=== PATIENT | male | born 1985 | race Caucasian/White ===

== ENCOUNTER 2020-09-23 23:03 | Emergency (ER) | payer OTHER ==
--- NOTE | 2020-09-23 23:24 | ED ---
Male Urogenital HPI - General Chief complaint: Urogenital Stated complaint: Male Time Seen by Provider: 09/23/20 23:12 Source: patient, RN notes reviewed, old records reviewed Mode of arrival: ambulatory Limitations: no limitations - History of Present Illness Initial comments: This is a 34-year-old male DF for evaluation patient Dese for evaluation regarding scrotal pain, patient has masses on his scrotum. Patient has otherwise no complaints. Concern for scrotal cancer as he has a friend who had similar issues with scrotal masses. Aside from pain patient has no complaints denying dysuria MD Complaint: testicle pain, testicle swelling -: week(s) Location: right testicle, left testicle Radiation: none Severity: mild Severity scale (1-10): 2 Quality: aching Consistency: constant Improves with: none Worsens with: none Reports: mass - Related Data Allergies Allergy/AdvReac Type Severity Reaction Status Date / Time tramadol Allergy Hallucinati Verified 09/23/20 23:07 ons Review of Systems ROS Statement: Those systems with pertinent positive or pertinent negative responses have been documented in the HPI. ROS Other: All systems not noted in ROS Statement are negative. Past Medical History Past Medical History: No Reported History History of Any Multi-Drug Resistant Organisms: None Reported Past Surgical History: Cholecystectomy, Joint Replacement Additional Past Surgical History / Comment(s): rt shoulder Past Psychological History: No Psychological Hx Reported Smoking Status: Current every day smoker Past Alcohol Use History: Occasional Past Drug Use History: None Reported General Exam Limitations: no limitations General appearance: alert, in no apparent distress Head exam: Present: atraumatic, normocephalic, normal inspection Eye exam: Present: normal appearance, PERRL, EOMI. Absent: scleral icterus, conjunctival injection, periorbital swelling ENT exam: Present: normal exam, mucous membranes moist Neck exam: Present: normal inspection. Absent: tenderness, meningismus, lymphadenopathy Respiratory exam: Present: normal lung sounds bilaterally. Absent: respiratory distress, wheezes, rales, rhonchi, stridor Cardiovascular Exam: Present: regular rate, normal rhythm, normal heart sounds. Absent: systolic murmur, diastolic murmur, rubs, gallop, clicks GI/Abdominal exam: Present: soft, normal bowel sounds. Absent: distended, tenderness, guarding, rebound, rigid Extremities exam: Present: normal inspection, full ROM, normal capillary refill. Absent: tenderness, pedal edema, joint swelling, calf tenderness Back exam: Present: normal inspection Neurological exam: Present: alert, oriented X3, CN II-XII intact Psychiatric exam: Present: normal affect, normal mood Skin exam: Present: warm, dry, intact, normal color. Absent: rash Course Vital Signs 09/23/20 09/24/20 23:05 00:57 Temperature 98.3 F 97.9 F Pulse Rate 85 77 Respiratory 20 17 Rate Blood Pressure 150/84 121/84 O2 Sat by Pulse 98 95 Oximetry - Reevaluation(s) Reevaluation #1: Medical record is reviewed Patient reevaluated feeling fine, symptoms improved Patient informed of results and questions have been answered Patient feels good for discharge Medical Decision Making - Medical Decision Making 34 male DF for evaluation concern for scrotal mass. Patient does have cysts, not requiring treatment, patient can be discharged home - Lab Data Lab Results 09/23/20 Range/Units 23:35 Urine Color Yellow Urine Appearance Clear (Clear) Urine pH 5.0 (5.0-8.0) Ur Specific [place] 1.018 (1.001-1.035) Urine Protein Negative (Negative) Urine Glucose (UA) Negative (Negative) Urine Ketones Negative (Negative) Urine Blood Negative (Negative) Urine Nitrite Negative (Negative) Urine Bilirubin Negative (Negative) Urine Urobilinogen <2.0 (<2.0) mg/dL Ur Leukocyte Esterase Small H (Negative) Urine RBC <1 (0-5) /hpf Urine WBC 2 (0-5) /hpf Ur Squamous Epith Cells <1 (0-4) /hpf Hyaline Casts 1 (0-2) /lpf Urine Mucus Rare H (None) /hpf - Radiology Data Radiology results: report reviewed (Ultrasound does show scrotal cysts on spermatic cord), image reviewed Disposition Clinical Impression: Epididymal cyst Disposition: HOME SELF-CARE Condition: Good Instructions (If sedation given, give patient instructions): Scrotal Pain (ED) Is patient prescribed a controlled substance at d/c from ED?: No Referrals: None,Stated [Primary Care Provider] - 1-2 days
[2020-09-23 23:44] LABS: Appearance,Urine Clear (Clear); Bilirubin,Urine Negative (Negative); Blood,Urine Negative (Negative); Color,Urine Yellow; Glucose,Urine (UA) Negative (Negative); Hyaline Casts,Urine 1 /lpf (0-2); Ketones,Urine Negative (Negative); Leukocyte Esterase,Urine Small (Negative); Mucus,Urine Rare /hpf; Nitrite,Urine Negative (Negative); Protein,Urine Negative (Negative); RBC,Urine <1 /hpf (0-5); Specific Gravity,Urine 1.018 (1.001-1.035); Squamous Epithelial Cell,Urine <1 /hpf (0-4); Urobilinogen,Urine <2.0 mg/dL (<2.0); WBC,Urine 2 /hpf (0-5)
--- NOTE | 2020-09-24 00:30 | US ---
EXAM: US Scrotum CLINICAL HISTORY: ITS.REASON US Reason: pain TECHNIQUE: Real-time ultrasound of the scrotum with color Doppler and image documentation. COMPARISON: No relevant prior studies available. FINDINGS: Right testicle: The right testicle measures 5.70 2.7 x 3.6 cm, 28.8 mL. The echogenicity and blood flow are normal. No torsion. Left testicle: The left testicle measures 5.9 x 3.2 x 3.3 cm, 32.5 mL. The echogenicity and Doppler blood flow is normal. There is a small left hydrocele. No torsion. Epididymides: There is a 0.7 x 0.4 cm cyst in the right epididymis. The left epididymis is enlarged measuring 1.4 x 1.3 x 1.5 cm with several cysts within it. The right epididymal head measures 0.9 x 1.5 cm. Scrotum: There is a small right hydrocele. IMPRESSION: Mildly enlarged left epididymis containing several cysts within it. This appears to correspond to the palpable abnormality. No hyperemia is seen to suggest epididymitis/orchitis at this time. Small bilateral hydroceles. Normal appearing testicles. No mass or torsion.
[2020-09-24] MEDS ORDERED: HYDROmorphone 1 MG/ML 1 ML SYRINGE IM STA (00:39)
[2020-09-24] MEDS ORDERED: ACET/COD 300 MG/30 MG STARTER PACK 6 TAB BTL PO STA (00:39)
[2020-09-24 00:57] VITALS: BP 121/84; PULSE 77; RESP 17; TEMP 97.9
== END 2020-09-24 00:57 | disposition home or self-care (01) ==
LOC: EC 23:03
DX: N50.3 Cyst of epididymis (principal); Z88.6 Allergy status to analgesic agent; Z90.49 Acquired absence of other specified parts of digestive tract
CPT/HCPCS: 93975; 76870; 96372; 99285; J1170

== ENCOUNTER 2021-01-06 17:11 | Emergency (ER) | payer OTHER ==
--- NOTE | 2021-01-06 17:46 | XR ---
EXAMINATION TYPE: XR chest 2V DATE OF EXAM: 01/06/2021 CLINICAL HISTORY: Chest Pain. TECHNIQUE: Frontal and lateral view of the chest. COMPARISON: None FINDINGS: Low lung volumes accentuates the pulmonary markings. The cardiomediastinal silhouette is w ithin normal limits for size. Pulmonary vasculature is normal. There is no focal air space opacity. No pleural effusion. No pneumothorax seen. No acute displaced osseous fracture. IMPRESSION: No acute cardiopulmonary process.
[2021-01-06] MEDS ORDERED: KETOROLAC 15 MG/ML 1 ML VIAL IVP STA (18:22)
--- NOTE | 2021-01-06 18:32 | ED ---
General Adult HPI - General Chief complaint: Chest Pain Stated complaint: chest pain/sob Time Seen by Provider: 01/06/21 17:20 Source: patient, family, RN notes reviewed, old records reviewed Mode of arrival: ambulatory Limitations: no limitations - History of Present Illness Initial comments: This is a 35-year-old male who presents emergency Department complaining of some reproducible chest pain some reproducible lower back pain and some left upper t rapezius pain which is also reproducible. Patient states when he walks and moves and takes a deep breath it does hurt more makes him feel like he short of breath but is not having any difficulty catching his breath. Patient denies any fever chills or cough. Patient denies any exposure to cold. Patient denies any abdominal pain patient denies nausea vomiting diarrhea. Patient denies any swelling to the legs or calf tenderness. - Related Data Previous Rx's Medication Instructions Recorded Ketorolac [Toradol] 10 mg PO Q6HR #15 tab 01/06/21 Allergies Allergy/AdvReac Type Severity Reaction Status Date / Time tramadol Allergy Hallucinati Verified 01/06/21 18:20 ons Review of Systems ROS Statement: Those systems with pertinent positive or pertinent negative responses have been documented in the HPI. ROS Other: All systems not noted in ROS Statement are negative. Past Medical History Past Medical History: No Reported History History of Any Multi-Drug Resistant Organisms: None Reported Past Surgical History: Cholecystectomy, Joint Replacement Additional Past Surgical History / Comment(s): rt shoulder Past Psychological History: No Psychological Hx Reported Smoking Status: Current every day smoker Past Alcohol Use History: Occasional Past Drug Use History: None Reported General Exam - General Exam Comments Initial Comments: GENERAL: Patient is well-developed and well-nourished. Patient is nontoxic and well- hydrated and is in mild distress. ENT: Neck is soft and supple. No significant lymphadenopathy is noted. Oropharynx is clear. Moist mucous membranes. Neck has full range of motion without eliciting any pain. EYES: The sclera were anicteric and conjunctiva were pink and moist. Extraocular movements were intact and pupils were equal round and reactive to light. Eyelids were unremarkable. PULMONARY: Unlabored respirations. Good breath sounds bilaterally. No audible rales rhonchi or wheezing was noted. CARDIOVASCULAR: There is a regular rate and rhythm without any murmurs gallops or rubs. ABDOMEN: Soft and nontender with normal bowel sounds. SKIN: Skin is clear with no lesions or rashes and otherwise unremarkable. NEUROLOGIC: Patient is alert and oriented x3. Cranial nerves II through XII are grossly int act. Motor and sensory are also intact. Normal speech, volume and content. Symmetrical smile. MUSCULOSKELETAL: Normal extremities with adequate strength and full range of motion. LYMPHATICS: No significant lymphadenopathy is noted PSYCHIATRIC: Normal psychiatric evaluation. Limitations: no limitations Course Vital Signs 01/06/21 01/06/21 17:20 18:50 Temperature 98.2 F Pulse Rate 101 H 85 Respiratory 17 18 Rate Blood Pressure 131/80 130/94 O2 Sat by Pulse 99 97 Oximetry Medical Decision Making - Medical Decision Making EKG shows sinus tachycardia at 103 bpm MA interval 258 QRS is 92 QT interval 3:30 QTC is 432. Patient's EKG shows no ST segment elevation or depression. Patient's chest x-ray shows no acute abnormality. I went back and reevaluate the patient after received Toradol he was improved. Patient also stated that he has had similar chest pain multiple times in the past. - Lab Data Result diagrams: 01/06/21 18:33 01/06/21 18:33 Lab Results 01/06/21 01/06/21 01/06/21 Range/Units 18:33 18:33 18:33 WBC 9.9 (3.8-10.6) k/uL RBC 6.01 H (4.30-5.90) m/uL Hgb 17.1 (13.0-17.5) gm/dL Hct 50.3 (39.0-53.0) % MCV 83.6 (80.0-100.0) fL MCH 28.5 (25.0-35.0) pg MCHC 34.0 (31.0-37.0) g/dL RDW 14.4 (11.5-15.5) % Plt Count 179 (150-450) k/uL MPV 7.8 Neutrophils % 58 % Lymphocytes % 30 % Monocytes % 6 % Eosinophils % 3 % Basophils % 1 % Neutrophils # 5.7 (1.3-7.7) k/uL Lymphocytes # 3.0 (1.0-4.8) k/uL Monocytes # 0.6 (0-1.0) k/uL Eosinophils # 0.3 (0-0.7) k/uL Basophils # 0.1 (0-0.2) k/uL PT 9.7 (9.0-12.0) sec INR 0.9 (<1.2) APTT 26.8 (22.0-30.0) sec D-Dimer 0.24 (<0.60) mg/L FEU Sodium 139 (137-145) mmol/L Potassium 3.9 (3.5-5.1) mmol/L Chloride 105 (98-107) mmol/L Carbon Dioxide 25 (22-30) mmol/L Anion Gap 9 mmol/L BUN 12 (9-20) mg/dL Creatinine 0.76 (0.66-1.25) mg/dL Est GFR (CKD-EPI)AfAm >90 (>60 ml/min/1.73 sqM) Est GFR (CKD-EPI)NonAf >90 (>60 ml/min/1.73 sqM) Glucose 77 (74-99) mg/dL Calcium 9.5 (8.4-10.2) mg/dL Magnesium 1.9 (1.6-2.3) mg/dL Total Bilirubin 0.3 (0.2-1.3) mg/dL AST 31 (17-59) U/L ALT 57 H (4-49) U/L Alkaline Phosphatase 53 (38-126) U/L Troponin I (0.000-0.034) ng/mL Total Protein 7.2 (6.3-8.2) g/dL Albumin 4.3 (3.5-5.0) g/dL 01/06/21 Range/Units 18:33 WBC (3.8-10.6) k/uL RBC (4.30-5.90) m/uL Hgb (13.0-17.5) gm/dL Hct (39.0-53.0) % MCV (80.0-100.0) fL MCH (25.0-35.0) pg MCHC (31.0-37.0) g/dL RDW (11.5-15.5) % Plt Count (150-450) k/uL MPV Neutrophils % % Lymphocytes % % Monocytes % % Eosinophils % % Basophils % % Neutrophils # (1.3-7.7) k/uL Lymphocytes # (1.0-4.8) k/uL Monocytes # (0-1.0) k/uL Eosinophils # (0-0.7) k/uL Basophils # (0-0.2) k/uL PT (9.0-12.0) sec INR (<1.2) APTT (22.0-30.0) sec D-Dimer (<0.60) mg/L FEU Sodium (137-145) mmol/L Potassium (3.5-5.1) mmol/L Chloride (98-107) mmol/L Carbon Dioxide (22-30) mmol/L Anion Gap mmol/L BUN (9-20) mg/dL Creatinine (0.66-1.25) mg/dL Est GFR (CKD-EPI)AfAm (>60 ml/min/1.73 sqM) Est GFR (CKD-EPI)NonAf (>60 ml/min/1.73 sqM) Glucose (74-99) mg/dL Calcium (8.4-10.2) mg/dL Magnesium (1.6-2.3) mg/dL Total Bilirubin (0.2-1.3) mg/dL AST (17-59) U/L ALT (4-49) U/L Alkaline Phosphatase (38-126) U/L Troponin I <0.012 (0.000-0.034) ng/mL Total Protein (6.3-8.2) g/dL Albumin (3.5-5.0) g/dL Disposition Clinical Impression: Musculoskeletal pain Disposition: HOME SELF-CARE Condition: Good Instructions (If sedation given, give patient instructions): Chest Pain (ED) Prescriptions: Ketorolac [Toradol] 10 mg PO Q6HR #15 tab Is patient prescribed a controlled substance at d/c from ED?: No Referrals: None,Stated [Primary Care Provider] - 1-2 days Time of Disposition: 19:30
[2021-01-06 18:40] LABS: Basophils # (A) 0.1 k/uL (0-0.2); Basophils % (A) 1 %; Eosinophils # (A) 0.3 k/uL (0-0.7); Eosinophils % (A) 3 %; HCT 50.3 % (39.0-53.0); HGB 17.1 gm/dL (13.0-17.5); Lymphocytes % (A) 30 %; MCH 28.5 pg (25.0-35.0); MCV 83.6 fL (80.0-100.0); Mean Platelet Volume 7.8; Monocytes # (A) 0.6 k/uL (0-1.0); Monocytes % (A) 6 %; Neutrophils # (A) 5.7 k/uL (1.3-7.7); Neutrophils % (A) 58 %; Platelet Count 179 k/uL (150-450); RBC 6.01 m/uL (4.30-5.90); RDW 14.4 % (11.5-15.5); WBC 9.9 k/uL (3.8-10.6)
[2021-01-06 18:48] LABS: ALT 57 U/L (4-49); AST 31 U/L (17-59); African American GFR (CKD) >90 (>60 ml/min/1.73 sqM); Albumin 4.3 g/dL (3.5-5.0); Alkaline Phosphatase 53 U/L (38-126); Anion Gap 9 mmol/L; Blood Urea Nitrogen 12 mg/dL (9-20); Calcium 9.5 mg/dL (8.4-10.2); Carbon Dioxide 25 mmol/L (22-30); Chloride 105 mmol/L (98-107); Glucose 77 mg/dL (74-99); Magnesium 1.9 mg/dL (1.6-2.3); Non-African American GFR(CKD) >90 (>60 ml/min/1.73 sqM); Potassium 3.9 mmol/L (3.5-5.1); Sodium 139 mmol/L (137-145); Total Bilirubin 0.3 mg/dL (0.2-1.3); Total Protein 7.2 g/dL (6.3-8.2)
[2021-01-06 18:52] VITALS: BP 130/94; RESP 18
[2021-01-06 19:00] LABS: D-Dimer 0.24 mg/L FEU (<0.60); INR 0.9 (<1.2); Partial Thromboplastin Time 26.8 sec (22.0-30.0); Prothrombin Time 9.7 sec (9.0-12.0)
[2021-01-06 20:34] VITALS: PULSE 76; TEMP 97.5
== END 2021-01-06 20:30 | disposition home or self-care (01) ==
LOC: EC 17:11
DX: M79.18 Myalgia, other site (principal); R07.9 Chest pain, unspecified; R06.02 Shortness of breath; M54.5 Low back pain; F17.200 Nicotine dependence, unspecified, uncomplicated
CPT/HCPCS: 36415; 93005; 85379; 80053; 83735; 84484; 85025; 85610; 85730; 71046; 99285; 96374; J1885

== ENCOUNTER 2021-03-15 22:51 | Emergency (ER) | payer OTHER ==
[2021-03-15 23:04] VITALS: BP 126/84; PULSE 91; RESP 16; TEMP 98
--- NOTE | 2021-03-15 23:39 | ED ---
Lower Extremity Injury HPI - General Chief Complaint: Extremity Injury, Lower Stated Complaint: [facility] LT foot injury Time Seen by Provider: 03/15/21 23:18 Source: patient, RN notes reviewed Mode of arrival: ambulatory Limitations: no limitations - History of Present Illness Initial Comments: This a 35-year-old male presents emergency Department with chief complaint of left foot injury. Patient states that he was at work states she dropped approximately 30 pound metal piece onto his left foot. Patient states his left foot pain no laceration noted. He states he is able to family but states there is moderate discomfort no paresthesias. - Related Data Previous Rx's Medication Instructions Recorded Ketorolac [Toradol] 10 mg PO Q6HR #15 tab 01/06/21 Ibuprofen [Motrin] 600 mg PO Q8HR PRN #20 tab 03/16/21 Allergies Allergy/AdvReac Type Severity Reaction Status Date / Time tramadol Allergy Hallucinati Verified 03/15/21 23:02 ons Review of Systems ROS Statement: Those systems with pertinent positive or pertinent negative responses have been documented in the HPI. ROS Other: All systems not noted in ROS Statement are negative. Past Medical History Past Medical History: No Reported History History of Any Multi-Drug Resistant Organisms: None Reported Past Surgical History: Cholecystectomy, Joint Replacement Additional Past Surgical History / Comment(s): rt shoulder Past Psychological History: No Psychological Hx Reported Smoking Status: Current every day smoker Past Alcohol Use History: Occasional Past Drug Use History: None Reported General Exam Limitations: no limitations General appearance: alert, in no apparent distress Respiratory exam: Present: normal lung sounds bilaterally. Absent: respiratory distress, wheezes, rales, rhonchi, stridor Cardiovascular Exam: Present: regular rate, normal rhythm, normal heart sounds. Absent: systolic murmur, diastolic murmur, rubs, gallop, clicks Extremities exam: Present: other (Left foot with moderate tenderness across the dorsal aspect, no swelling or ecchymosis noted no vascular intact Refill less than 2 seconds no ankle tenderness) Skin exam: Present: warm, dry, intact, normal color. Absent: rash Course Vital Signs 03/15/21 23:02 Temperature 98 F Pulse Rate 91 Respiratory 16 Rate Blood Pressure 126/84 O2 Sat by Pulse 96 Oximetry Medical Decision Making - Medical Decision Making X-rays were reviewed patient has no acute fracture. Patient has a left foot contusion. Patient discharged in stable condition. Disposition Clinical Impression: Contusion of foot, left Disposition: HOME SELF-CARE Condition: Stable Instructions (If sedation given, give patient instructions): Foot Contusion (ED) Additional Instructions: Please return to the Emergency Department if symptoms worsen or any other concerns. Prescriptions: Ibuprofen [Motrin] 600 mg PO Q8HR PRN #20 tab PRN Reason: Pain Is patient prescribed a controlled substance at d/c from ED?: No Referrals: None,Stated [Primary Care Provider] - 1-2 days Time of Disposition: 00:01
--- NOTE | 2021-03-15 23:53 | XR ---
EXAMINATION TYPE: XR foot complete LT DATE OF EXAM: 03/15/2021 COMPARISON: NONE HISTORY: Pain TECHNIQUE: 3 views FINDINGS: Metatarsals are intact. I see no fracture nor dislocation. Joint spaces are normal. IMPRESSION: Negative left foot exam. No fracture.
== END 2021-03-16 00:14 | disposition home or self-care (01) ==
LOC: EC 22:51
DX: S90.32XA Contusion of left foot, initial encounter (principal); F17.200 Nicotine dependence, unspecified, uncomplicated; Z88.6 Allergy status to analgesic agent; W20.8XXA Other cause of strike by thrown, projected or falling object, initial encounter; Y93.89 Activity, other specified; Y99.0 Civilian activity done for income or pay
CPT/HCPCS: 99283

== ENCOUNTER 2021-07-10 18:47 | Emergency (ER) | payer OTHER ==
[2021-07-10 19:09] VITALS: RESP 18
--- NOTE | 2021-07-10 19:51 | XR ---
EXAMINATION TYPE: XR shoulder complete RT DATE OF EXAM: 07/10/2021 CLINICAL HISTORY: Pain after fall TECHNIQUE: Three views of the right shoulder are obtained. COMPARISON: None. FINDINGS: There is no acute fracture/dislocation evident in the right shoulder. Degenerative changes of the acromioclavicular joint. Coracoclavicular distance is within normal limits. Glenohumeral join t appears normal. The visualized ribs are intact and unremarkable. IMPRESSION: There is no acute fracture or dislocation in the right shoulder.
--- NOTE | 2021-07-10 19:52 | XR ---
EXAMINATION TYPE: XR wrist complete RT DATE OF EXAM: 07/10/2021 CLINICAL HISTORY: Pain after fall TECHNIQUE: Frontal, lateral and oblique images of the right wrist are obtained. COMPARISON: None FINDINGS: There is no acute fracture/dislocation evident in the right wrist. The joint spaces in th e right wrist appear within normal limits. The overlying soft tissue appears unremarkable. IMPRESSION: There is no acute fracture or dislocation in the right wrist.
--- NOTE | 2021-07-10 19:53 | XR ---
EXAMINATION TYPE: XR Hip Complete RT DATE OF EXAM: 07/10/2021 CLINICAL HISTORY: Pain after fall TECHNIQUE: AP and frogleg views of the right hip are obtained. COMPARISON: None. FINDINGS: There is no acute fracture/dislocation evident in the right hip. Mild degenerative changes with joint space narrowing and osteophytosis along the inferior margin. The overlying soft tissue a ppears unremarkable. IMPRESSION: There is no acute fracture or dislocation in the right hip.
[2021-07-10] MEDS ORDERED: IBUPROFEN 600 MG TAB PO STA (19:55)
--- NOTE | 2021-07-10 20:02 | ED ---
General Adult HPI - General Chief complaint: Extremity Injury, Upper Stated complaint: Fall/Right side pain [facility] Time Seen by Provider: 07/10/21 19:35 Source: patient Mode of arrival: ambulatory Limitations: no limitations - History of Present Illness Initial comments: 35-year-old male presents to the emergency department for evaluation status post slip and fall at work approximately 2 hours ago. Patient states he landed on his right hip then reached behind him with his right arm extended and has right shoulder pain as well. States he is able to ambulate without difficulty. Does complain of pain extending down the right arm to the right hand, and also complains of numbness and tingling in the fingers of the affected extremity. Patient denies any injury to the head, neck, back, or chest wall. - Related Data Previous Rx's Medication Instructions Recorded Ketorolac [Toradol] 10 mg PO Q6HR #15 tab 01/06/21 Ibuprofen [Motrin] 600 mg PO Q8HR PRN #20 tab 03/16/21 Ibuprofen [Motrin] 600 mg PO Q8HR PRN #20 tab 07/10/21 Allergies Allergy/AdvReac Type Severity Reaction Status Date / Time tramadol Allergy Hallucinati Verified 07/10/21 19:08 ons Review of Systems ROS Statement: Those systems with pertinent positive or pertinent negative responses have been documented in the HPI. ROS Other: All systems not noted in ROS Statement are negative. Past Medical History Past Medical History: No Reported History History of Any Multi-Drug Resistant Organisms: None Reported Past Surgical History: Cholecystectomy, Joint Replacement Additional Past Surgical History / Comment(s): rt shoulder Past Psychological History: No Psychological Hx Reported Smoking Status: Current every day smoker Past Alcohol Use History: Occasional Past Drug Use History: None Reported General Exam Limitations: no limitations General appearance: alert, in no apparent distress Head exam: Present: atraumatic, normocephalic, normal inspection Eye exam: Present: normal appearance, PERRL, EOMI. Absent: scleral icterus, conjunctival injection, periorbital swelling Respiratory exam: Present: normal lung sounds bilaterally. Absent: respiratory distress, wheezes, rales, rhonchi, stridor, chest wall tenderness Cardiovascular Exam: Present: regular rate, normal rhythm, normal heart sounds. Absent: systolic murmur, diastolic murmur, rubs, gallop, clicks GI/Abdominal exam: Present: soft, normal bowel sounds. Absent: distended, tenderness, guarding, rebound, rigid Right General: Present: normal inspection Shoulder Exam: Present: tenderness (Right scapular tenderness upon palpation). Absent: full ROM (Range of motion limited by pain), ecchymosis, deformity, crepitus, dislocation, tenderness over AC joint Upper Arm exam: Present: normal inspection, tenderness (Tenderness upon palpation of the posterior aspect of the right upper arm). Absent: full ROM (Range of motion limited by pain), deformity, dislocation Elbow exam: Present: normal inspection. Absent: full ROM (Range of motion limited by pain), tenderness, swelling Forearm Wrist exam: Present: normal inspection. Absent: full ROM (Range of motion limited by pain), tenderness, swelling, deformity Hand Wrist exam: Present: normal inspection, full ROM. Absent: tenderness Neuro motor exam: Present: thumb opposition intact, fingers 2-5 abduction intact Vascular: Present: normal capillary refill, radial pulse, brachial pulse, ulnar pulse. Absent: vascular compromise, Pallo Right Hip exam: Present: normal inspection, full ROM, tenderness (Tenderness upon palpation of the right medial aspect of the hip). Absent: swelling, deformity, external rotation, internal rotation Upper Leg exam: Present: normal inspection, full ROM. Absent: tenderness, swelling Knee exam: Present: normal inspection, full ROM. Absent: tenderness, swelling Neurovascular tendon exam: Present: no vascular compromise Gait: observed and normal. negative: unable to bear weight Back exam: Present: normal inspection Neurological exam: Present: alert, oriented X3, CN II-XII intact Psychiatric exam: Present: normal affect, normal mood Skin exam: Present: warm, dry, intact, normal color. Absent: rash Course Vital Signs 07/10/21 07/10/21 19:05 21:11 Temperature 97.4 F L 98 F Pulse Rate 87 78 Respiratory 18 18 Rate Blood Pressure 113/75 134/84 O2 Sat by Pulse 96 98 Oximetry Medical Decision Making - Medical Decision Making [id number] male is evaluated for right shoulder and right hip pain status post slip and fall at work. Upon exam, patient reports tenderness upon palpation on the entire right shoulder accompanied by decreased range of motion. Patient reports falling on an outstretched arm therefore wrist was evaluated and was found to be nontender. Also complains of tenderness to the right hip upon palpation, though no decreased range of motion. X-rays of the right shoulder, right wrist, and right hip were obtained with no acute findings. Patient was given Motrin for discomfort while present in the department and reports improvement in symptoms. Declines need for prescription for pain control. Patient will be instructed to follow-up as his workplace requires for further evaluation and treatment. Return parameters were discussed in detail. Patient verbalizes understanding and agrees with this plan. This patient's case was discussed with my attending Dr. Pimentel. - Radiology Data Radiology results: report reviewed, image reviewed X-ray of the right hip was obtained. Report was reviewed in its entirety. Impression per Dr. Davis as there is no acute fracture or dislocation in the right hip. X-ray of the right wrist was obtained. Report was reviewed in its entirety. Impression per Dr. Davis as there is no acute fracture or dislocation in the right wrist. X-ray of the right shoulder was obtained. Report was reviewed in its entirety. Impression per Dr. Davis as there is no acute fracture or dislocation in the right shoulder. Disposition Clinical Impression: Hip pain, right, Shoulder pain, right Disposition: HOME SELF-CARE Condition: Stable Instructions (If sedation given, give patient instructions): Shoulder Pain (ED), Hip Pain (ED) Additional Instructions: Rest. Apply ice to affected areas. Take Tylenol or Motrin for discomfort. Gentle range of motion exercises; maintain regular mobility. Follow-up for a recheck in the next 1-2 days. Return to the emergency department with any new, worsening, or concerning symptoms. Prescriptions: Ibuprofen [Motrin] 600 mg PO Q8HR PRN #20 tab PRN Reason: Pain Is patient prescribed a controlled substance at d/c from ED?: No Referrals: None,Stated [Primary Care Provider] - 1-2 days Time of Disposition: 21:07
[2021-07-10 21:12] VITALS: BP 134/84; PULSE 78; TEMP 98
== END 2021-07-10 21:20 | disposition home or self-care (01) ==
LOC: EC 18:47
DX: M25.511 Pain in right shoulder (principal); M25.551 Pain in right hip; R20.0 Anesthesia of skin; R20.2 Paresthesia of skin; F17.200 Nicotine dependence, unspecified, uncomplicated; Z88.5 Allergy status to narcotic agent; W01.0XXA Fall on same level from slipping, tripping and stumbling without subsequent striking against object, initial encounter; Y99.0 Civilian activity done for income or pay
CPT/HCPCS: 73502; 99283

== ENCOUNTER → 2021-07-12 | Outpatient (CLI) | payer OTHER ==
--- NOTE | 2021-07-12 16:04 | XR ---
AP pelvis HISTORY: Trauma and pain, S40.011A S30.0XXA S60.211A M79.631 Single frontal view of the pelvis correlated to right hip dated 07/10/2021 Concentric joint space narrowing is suspected in or on the left than on the right, there is mild sylvia inal spurring as on prior. Alignment, bone mineralization are maintained. Phlebolith present in the l eft hemipelvis. IMPRESSION: Osteoarthritic changes are suspected, consider acetabular femoral impingement. No acute f racture or dislocation evident. MRI may be of increased sensitivity as indicated.
--- NOTE | 2021-07-12 16:06 | XR ---
Lumbar spine HISTORY: S40.011A S30.0XXA S60.211A M79.631 3 views of the lumbar spine Lumbar vertebral bodies show preserved height, alignment, and bone mineralization. Spina bifida occul ta is present at L5. There is an anterolisthesis grade 1 L5-S1, bilateral spondylolysis is present at L5. Loss of disc height present L4-5 and L5-S1, there is associated spondylosis. IMPRESSION: Spondylolysis, spondylolisthesis, degenerative disc disease and facet arthropathy.
--- NOTE | 2021-07-12 16:07 | XR ---
Right scapula HISTORY: S40.011A S30.0XXA S60.211A M79.851 2 views of the right scapula Scapula is intact. Bone mineralization, joint spaces and alignment are maintained. Question some calc ification along the rotator cuff insertion level. Right lung apex as visualized is normal. IMPRESSION: No fracture or dislocation of the right scapula.
--- NOTE | 2021-07-12 16:08 | XR ---
Right forearm HISTORY: S40.011A S30.0XXA S60.211A M79.631 2 views of the right forearm Bone mineralization, joint spaces and alignment are maintained. The soft tissue swelling. IMPRESSION: No fracture or dislocation.
== END | disposition home or self-care (01) ==
LOC: RADXRMAIN 15:02
PROVIDERS: ATTEND Emergency Medicine
DX: M51.36 Other intervertebral disc degeneration, lumbar region (principal); M47.896 Other spondylosis, lumbar region; S40.011A Contusion of right shoulder, initial encounter; S60.211A Contusion of right wrist, initial encounter; S30.0XXA Contusion of lower back and pelvis, initial encounter; M79.631 Pain in right forearm; W19.XXXA Unspecified fall, initial encounter
CPT/HCPCS: 72100; 72170

== ENCOUNTER 2021-07-18 19:59 | Emergency (ER) | payer OTHER ==
[2021-07-18 20:04] VITALS: BP 138/88; PULSE 97; RESP 18; TEMP 97.5
[2021-07-18] MEDS ORDERED: KETOROLAC 15 MG/ML 1 ML VIAL IM STA (20:21)
[2021-07-18] MEDS ORDERED: ACET/COD 300 MG/30 MG STARTER PACK 6 TAB BTL PO STA (20:22)
--- NOTE | 2021-07-18 20:27 | ED ---
General Adult HPI - General Chief complaint: Back Pain/Injury Stated complaint: PAIN L R BACK AND SHOULDER Time Seen by Provider: 07/18/21 20:11 Source: patient, RN notes reviewed, old records reviewed Mode of arrival: ambulatory Limitations: no limitations - History of Present Illness Initial comments: Patient is a pleasant 35-year-old male presenting to the emergency Department with complaints of right shoulder discomfort. Onset of symptoms was a week ago. Patient did have a fall at that time at work. Patient did land on his right shoulder. Patient still has some discomfort. Patient has some mild tingling of his right hand. No weakness. Patient did have x-rays done. Symptoms have been occurring for a week without significant improvement. 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 Patient states he is doing a lot of activity at work and they are not respecting his work restrictions. patient does have MRI scheduled. - Related Data Previous Rx's Medication Instructions Recorded Ketorolac [Toradol] 10 mg PO Q6HR #15 tab 01/06/21 Ibuprofen [Motrin] 600 mg PO Q8HR PRN #20 tab 03/16/21 Ibuprofen [Motrin] 600 mg PO Q8HR PRN #20 tab 07/10/21 Allergies Allergy/AdvReac Type Severity Reaction Status Date / Time tramadol Allergy Hallucinati Verified 07/18/21 20:04 ons Review of Systems ROS Statement: Those systems with pertinent positive or pertinent negative responses have been documented in the HPI. ROS Other: All systems not noted in ROS Statement are negative. Constitutional: Denies: fever Eyes: Denies: eye pain ENT: Denies: ear pain Respiratory: Denies: cough Cardiovascular: Denies: chest pain Endocrine: Denies: fatigue Gastrointestinal: Denies: abdominal pain Genitourinary: Denies: dysuria Musculoskeletal: Reports: as per HPI Skin: Denies: rash Neurological: Denies: weakness Past Medical History Past Medical History: No Reported History History of Any Multi-Drug Resistant Organisms: None Reported Past Surgical History: Cholecystectomy, Joint Replacement Additional Past Surgical History / Comment(s): rt shoulder Past Psychological History: No Psychological Hx Reported Smoking Status: Current every day smoker Past Alcohol Use History: Occasional Past Drug Use History: None Reported General Exam Limitations: no limitations General appearance: alert, in no apparent distress Head exam: Present: normocephalic Eye exam: Present: normal appearance Neck exam: Present: normal inspection Respiratory exam: Present: normal lung sounds bilaterally Cardiovascular Exam: Present: regular rate, normal rhythm Expanded Peripheral pulses: 2+: Radial (R) GI/Abdominal exam: Present: soft. Absent: tenderness Extremities exam: Present: normal inspection, other (Difficulty with flexion at the right shoulder secondary to discomfort.). Absent: tenderness Back exam: Present: other (Tenderness right upper scapular/trapezius region with muscle fullness) Neurological exam: Present: alert. Absent: motor sensory deficit Expanded Sensory exam: Upper Extremity Light Touch: Normal Motor strength exam: RUE: 5 Psychiatric exam: Present: normal affect, normal mood Skin exam: Present: normal color Course Vital Signs 07/18/21 20:00 Temperature 97.5 F L Pulse Rate 97 Respiratory 18 Rate Blood Pressure 138/88 O2 Sat by Pulse 98 Oximetry Medical Decision Making - Medical Decision Making Discussion had with patient regarding treatment. Patient would like tomorrow for. Patient is receptive to Toradol injection as well as Tylenol with codeine starter pack Disposition Clinical Impression: Shoulder pain, right Disposition: HOME SELF-CARE Condition: Stable Instructions (If sedation given, give patient instructions): Acute Low Back Pain (ED), Shoulder Pain (ED) Additional Instructions: Please [facility] Monday as planned. Return for increased pain or weakness, worsening or changing symptoms or other concerns. Is patient prescribed a controlled substance at d/c from ED?: No Referrals: Jeremy Gillette DO [STAFF PHYSICIAN] - 1-2 days Time of Disposition: 20:27
== END 2021-07-18 20:34 | disposition home or self-care (01) ==
LOC: EC 19:59
DX: M25.511 Pain in right shoulder (principal); R20.2 Paresthesia of skin; F17.200 Nicotine dependence, unspecified, uncomplicated; Z88.5 Allergy status to narcotic agent; Z88.8 Allergy status to other drugs, medicaments and biological substances; Z90.49 Acquired absence of other specified parts of digestive tract
CPT/HCPCS: 99283; 96372; J1885

== ENCOUNTER → 2021-07-19 | Outpatient (CLI) | payer OTHER ==
--- NOTE | 2021-07-19 13:53 | CT ---
EXAMINATION TYPE: CT lumbar spine wo con DATE OF EXAM: 07/19/2021 COMPARISON: None HISTORY: 35-year-old male slipped and fall, low back pain. S30.0XXD slip and fall worsening low back pain TECHNIQUE: Contiguous axial scanning of the lumbar spine without IV contrast. Coronal and sagittal re constructions performed. CT DLP: 959 mGycm Automated exposure control for dose reduction was used. FINDINGS: Vertebral body heights are preserved. There is grade 1 anterolisthesis at L5-S1 with associated moderate degenerative disc disease characte rized by disc space narrowing and disc bulge. The anterolisthesis secondary to bilateral L5 pars interarticularis defects. Mild posterior disc bulge at L4-L5. No large focal disc herniation or significant spinal canal stenosis. Mild facet arthropathy lower lumbar spine. Changes result in bilateral moderate foraminal stenosis at L5-S1 and mild at L4-L5. Incidental retroaortic left renal vein. IMPRESSION: 1. BILATERAL L5 PARS DEFECTS WITH GRADE 1 ANTEROLISTHESIS AT L5-S1 AND ASSOCIATED MODERATE DEGENERATI VE DISC DISEASE HERE. 2. MILD POSTERIOR DISC BULGE AT L4-L5. NO SIGNIFICANT SPINAL CANAL STENOSIS. 3. CHANGES RESULT IN MODERATE BILATERAL NEUROFORAMINAL STENOSIS AT L5-S1 AND MILD AT L4-L5.
== END | disposition home or self-care (01) ==
LOC: RADCTMAIN 12:57
PROVIDERS: ATTEND Emergency Medicine
DX: M48.061 Spinal stenosis, lumbar region without neurogenic claudication (principal); M43.16 Spondylolisthesis, lumbar region; M43.17 Spondylolisthesis, lumbosacral region; M51.37 Other intervertebral disc degeneration, lumbosacral region; M51.36 Other intervertebral disc degeneration, lumbar region; M51.26 Other intervertebral disc displacement, lumbar region
CPT/HCPCS: 72131

== ENCOUNTER → 2021-07-27 | Outpatient (CLI) | payer OTHER ==
--- NOTE | 2021-07-28 05:24 | MR ---
EXAMINATION TYPE: MR shoulder RT wo con DATE OF EXAM: 07/27/2021 COMPARISON: None HISTORY: Right shoulder pain and limited movement due to work related injury 07-10-21. History of sacha ulder surgery 7 years Multiplanar multiecho imaging of the right shoulder without contrast. The subscapularis tendon is intact. Biceps tendon is intact. Glenoid guadalupe appear intact. The suprasp inatus tendon appears intact. There is no retraction. AC joint is intact. There is no evidence of any significant subacromial impingement. I see no bony destructive process. Glenohumeral joint is anatomic. IMPRESSION: Negative MR scan of the right shoulder. No evidence of rotator cuff tear.
== END | disposition home or self-care (01) ==
LOC: RADMRIMAIN 16:33
PROVIDERS: ATTEND Emergency Medicine
DX: M79.631 Pain in right forearm (principal); R20.9 Unspecified disturbances of skin sensation

== ENCOUNTER → 2021-08-10 | Outpatient (CLI) | payer OTHER ==
--- NOTE | 2021-08-10 11:21 | XR ---
Cervical spine HISTORY: M [age], slip and fall 5 views of cervical spine There is foraminal encroachment on the right at C5-6. Cervical vertebral bodies show preserved height , alignment, bone mineralization. Prevertebral soft tissues and disc spaces are relatively maintained , some loss of disc height at 4 5 with some associated spondylosis. Facet arthropathy changes are pre sent. IMPRESSION: Degenerative disc disease and facet arthropathy.
== END | disposition home or self-care (01) ==
LOC: RADXRMAIN 09:15
PROVIDERS: ATTEND Emergency Medicine
DX: M50.30 Other cervical disc degeneration, unspecified cervical region (principal); M12.88 Other specific arthropathies, not elsewhere classified, other specified site
CPT/HCPCS: 72050

== ENCOUNTER → 2021-09-04 | Outpatient (CLI) | payer OTHER ==
--- NOTE | 2021-09-04 08:50 | MR ---
EXAMINATION TYPE: MR lumbar spine wo con DATE OF EXAM: 09/04/2021 COMPARISON: None HISTORY: Low back pain due to slip and fall injury at work. TECHNIQUE: Multiplanar, multisequence images of the lumbar spine were acquired without IV contrast. Findings: The lumbar vertebral segments are normal in height. There is a grade 1 anterolisthesis of L5 on S1 se condary to a bilateral spondylolysis of L5 is mild distortion of the L5-S1 disc secondary to. There i s mild degenerative the L4-5 disc although the disc spaces well-maintained in height. There is moderate facet arthropathy at the L4-5 and L5-S1 level. There is no lumbar disc herniation or spinal stenosis. Conus medullaris and cauda equina appear normal. Foramen are widely patent. Soft tissues are unremarkable. IMPRESSION: 1. Grade 1 anterolisthesis of L5 on S1 secondary to bilateral spondylolysis of L5. 2. Mild degenerative disc disease at the L4-5 and L5-S1 discs. 3. Mild to moderate facet arthropathy at the L4-5 and L5-S1 level. 4. No lumbar disc herniation, spinal stenosis or neural foraminal stenosis.
== END | disposition home or self-care (01) ==
LOC: RADMRIMAIN 07:25
PROVIDERS: ATTEND Emergency Medicine
DX: S40.011D Contusion of right shoulder, subsequent encounter (principal); S60.211D Contusion of right wrist, subsequent encounter; S30.0XXD Contusion of lower back and pelvis, subsequent encounter; M79.631 Pain in right forearm; R20.9 Unspecified disturbances of skin sensation; M54.2 Cervicalgia; X58.XXXD Exposure to other specified factors, subsequent encounter
CPT/HCPCS: 72148

== ENCOUNTER → 2021-10-01 | Outpatient (CLI) | payer OTHER ==
--- NOTE | 2021-10-01 21:34 | MR ---
MRI CERVICAL SPINE: CLINICAL HISTORY: Neck pain into the right shoulder after falling injury. Cervical radiculopathy per order. TECHNIQUE: Multiplanar, multisequence imaging of the cervical spine is performed without IV contrast. COMPARISON: None. FINDINGS: Sagittal images of the cervical spine show the craniocervical junction to appear within nor mal limits. The cervical and upper thoracic spinal cord is normal in caliber and signal. Vertebral alignment is straightened. There is slight grade 1 retrolisthesis C4 on C5 and C5 on C6. The vertebr al body and intravertebral disk heights are normal. The bone marrow signal intensity is within isidro l limits. Axial images show C2-C3 appear within level to appear within normal limits. Axial images C3-C4 levels show tiny central disc protrusion mildly effacing the anterior thecal sac. Patent bilateral neural foramina. Axial images show C4-C5 levels shows broad-based left paracentral disc protrusion mildly effacing the anterior thecal sac. Patent bilateral neural foramina. Axial images at C5-C6 level broad-based left paracentral disc protrusion effacing anterior thecal sac , patent bilateral neural foramina. Axial images at C6-C7 and C7-T1 levels appear within normal limits. IMPRESSION: Straightening of cervical spine with multilevel degenerative changes as detailed above. N o significant eccentric disc herniation to account for patient's right-sided radiculopathy type sympt oms however.
== END | disposition home or self-care (01) ==
LOC: RADMRIMAIN 19:48
PROVIDERS: ATTEND Orthopaedic Surgery
DX: M54.12 Radiculopathy, cervical region (principal)
CPT/HCPCS: 72141

== ENCOUNTER 2021-11-23 08:37 | Day surgery (SDC) | payer OTHER ==
[2021-11-22 13:58] VITALS: BMI 29.0
[2021-11-23] MEDS ORDERED: LACTATED RINGERS 1,000 ML IV SCH (08:55)
[2021-11-23] MEDS ORDERED: LIDOCAINE 1% (10MG/ML) FOR IV START INTRADERMA PRN (08:55)
[2021-11-23 09:06] VITALS: TEMP 97.3
[2021-11-23] MEDS ORDERED: fentaNYL (PF) 50 MCG/ML 2 ML AMP ONE (09:29)
[2021-11-23] MEDS ORDERED: MIDAZOLAM 2 MG/2 ML VIAL ONE (09:29)
[2021-11-23] MEDS ORDERED: TRIAMCINOLONE ACETONIDE 40 MG/ML 1 ML VIAL ONE (09:29)
[2021-11-23] MEDS ORDERED: IV FLUID CONTINUATION 1,000 ML IV ONE (09:50)
[2021-11-23 09:53] VITALS: RESP 18
[2021-11-23 10:06] VITALS: BP 124/88; PULSE 86
--- NOTE | 2021-11-23 10:12 | P.PCN ---
Date of Procedure: 11/23/21 Description of Procedure: DESCRIPTION OF PROCEDURE(S): PROCEDURE: Right Lumbar Facet Joint Injection L5-S1 PREOPERATIVE DIAGNOSIS : 1- Lumbar spondylosis with Facet Arthropathy without myelopathy . 2- Lumber degenerative disc disease POSTOPERATIVE DIAGNOSIS: 1- Lumbar spondylosis with Facet Arthropathy without myelopathy . 2- Lumber degenerative disc disease ANESTHESIA: IV sedation with Versed 2 mg and Fentanyl 100 mcg. COMPLICATION: None. IV FLUIDS: 100 mL of normal saline. PROCEDURE INDICATION: Chronic low back pain secondary to Facet arthropathy unresponsive to conservative treatment. PROCEDURE DESCRIPTION: the patient was seen and identified in the preop holding area , risks and benefits and possible complications of the procedure and alternative were discussed with the patient, and the patient agreed to proceed with the procedure and signed the consent IV was started and vital signs monitored during the procedure and fluoroscopy was used to maximize the benefit and accuracy of the needle placement, and sedation was given to decrease patient anxiety, patient was taken to the procedure room and placed in prone position vital signs monitored in the back prepped with chlorhexidine X3 then under strict sterile technique using a right oblique fluoroscopy ,the junction of the transverse process and the superior articulating process of the right L5-S1 vertebra which corresponding to the fluoroscopy image of the eye of the Isidoro dog on the block side for the medial branches and subsequently , a 25-gauge Quincke-type needle was used and each time placed at the junction of the base of the transverse process and the superior articular process at the appropriate level L5-S1 pedicle. The needle was advanced until the periosteum contacted, needle placement confirmed with AP oblique view and after appropriate needle placement confirmed, and after negative aspiration for heme and CSF and there was no paresthesia 1-1/2 mL of Lidcaine 1% mixed with 40 mg Kenalog . At the end of the procedure and the needles removed and a bandage applied after the skin was cleaned the cleaning solution patient taken to recovery room in stable condition and monitors in the recovery room for 20-30 minutes and discharged home in stable condition after discharge criteria met and patient is scheduled for a [facility]A in 2 weeks.
--- NOTE | 2021-11-23 13:02 | FL ---
Fluoroscopy HISTORY: Pain 4 seconds fluoroscopy time supplied to the referring clinician. 1 intraoperative C-arm images docume nt the procedure. See dictated report from anesthesia.
== END 2021-11-23 10:21 | disposition home or self-care (01) ==
LOC: ORPAIN 08:37
PROVIDERS: ATTEND Anesthesiology
DX: G89.29 Other chronic pain (principal); M47.816 Spondylosis without myelopathy or radiculopathy, lumbar region; M51.36 Other intervertebral disc degeneration, lumbar region; Z88.5 Allergy status to narcotic agent
CPT/HCPCS: 64493; J2250; J3301; J3010; 99152

== ENCOUNTER 2021-12-07 08:47 | Day surgery (SDC) | payer OTHER ==
[2021-12-03 13:12] VITALS: BMI 29.5
[~2021-12-07 08:47] MED LIST: LACTATED RINGERS 1,000 ML IV SCH; LIDOCAINE 1% (10MG/ML) FOR IV START INTRADERMA PRN
[2021-12-07 09:35] VITALS: RESP 16; TEMP 97.7
[2021-12-07] MEDS ORDERED: DEXAMETHASONE SOD PHOSPHATE 10 MG/ML 1 ML VIAL ONE (09:44)
[2021-12-07] MEDS ORDERED: fentaNYL (PF) 50 MCG/ML 2 ML AMP ONE (09:44)
[2021-12-07] MEDS ORDERED: IOPAMIDOL M200 10 ML VIAL ONE (09:44)
[2021-12-07] MEDS ORDERED: MIDAZOLAM 2 MG/2 ML VIAL ONE (09:44)
[2021-12-07] MEDS ORDERED: LACTATED RINGERS 1,000 ML IV SCH (09:45)
--- NOTE | 2021-12-07 10:02 | P.PCN ---
Date of Procedure: 12/07/21 Description of Procedure: Pre- and Post-operative Diagnosis: Cervical radiculopathy Procedure: C4-C5 Inter-Laminar Cervical Epidural Steroid Injection under biplanar fluoroscopy Surgeon: David Palomino Anesthesia: Local: 1% Lidocaine, IV sedation : Versed 2 mg, and fentanyl 100 g. Complications: None. Estimated blood loss: None Specimens removed: None Fluoroscopic image: saved to electronic medical records. Indications for Procedure: The patient has been suffering from neck pain and pain radiating to the upper extremity . Inadequate pain control with pharmacologic regimen. An inter-laminar approach cervical epidural steroid injection was scheduled for the patient. Procedure and Findings: The patient was seen and examined in the holding area. The written informed consent was obtained after explaining the risks, benefits, alternatives of the procedure to the patient. The patient was brought to the procedure room and was placed in the prone position on the operating table. A pillow was placed under the upper chest. Standard anesthesia monitoring was done through out the procedure. Timeout was completed. The skin preparation was done with ChloraPrep 1 and draping was done in usual sterile fashion. Sterile technique was observed throughout the procedure. Under fluoroscopic guidance, the C4-C5 inter-laminar space was identified. 3 ml of 1% Lidocaine was injected with a 25 gauge needle to achieve adequate local anesthesia of the skin and subcutaneous tissue. A 20 gauge, 3.5 inch Tuohy type epidural needle was placed and gradually advanced up to the epidural space using loss of resistance technique and fluoroscopic guidance. Lateral, oblique fluoroscopic views confirm the needle position. No paresthesia was noted. A negative aspiration was confirmed and then 1 ml of Isovue-200 was injected. A good dye spread was seen in the epidural space and it was negative for any intrathecal, intraneural or intravascular spread. A total of 4 ml solution containing 20 mg Dexamethasone, and 3 ml preservative-free Normal Saline was injected slowly with intermittent aspiration. The needle was removed intact, area was cleaned and bandage was applied. Disposition : The patient tolerated the procedure very well. The patient was transferred to the recovery room and remained stable until discharged home. The patient was given detailed discharge instructions for bleeding, infection, increased pain at the injection site, and was advised to seek immediate medical attention should significant side effects develop. The patient will be followed up with our [facility] within 4 weeks for follow-up visit.
[2021-12-07] MEDS ORDERED: IV FLUID CONTINUATION 800 ML IV ONE (10:05)
--- NOTE | 2021-12-07 10:10 | FL ---
EXAMINATION TYPE: FL guided pain mgmt statistic DATE OF EXAM: 12/07/2021 HISTORY: Fluoroscopy time 5 seconds of fluoroscopy provided. IMPRESSION: 1. Fluoroscopy time.
[2021-12-07 10:32] VITALS: BP 126/75; PULSE 77
== END 2021-12-07 10:29 | disposition home or self-care (01) ==
LOC: ORPAIN 08:47
DX: M54.12 Radiculopathy, cervical region (principal); Z90.49 Acquired absence of other specified parts of digestive tract; Z98.890 Other specified postprocedural states
CPT/HCPCS: 62321; J2250; J1100; J3010; Q9966; 99152